=== PATIENT | male | born 1985 | race Two or more races ===

== ENCOUNTER 2019-11-20 17:39 | Emergency (ER) | payer OTHER ==
[2019-11-20 17:47] VITALS: BP 139/93
[2019-11-20] MEDS ORDERED: ONDANSETRON ODT 4 MG TAB (6 TAB/ER DISP) PO PRN (18:31)
[2019-11-20] MEDS ORDERED: IBUPROFEN 600 MG TABLET PO ONE (18:31)
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
== END 2019-11-20 18:52 | disposition home or self-care (01) ==
LOC: ER 17:39
DX: S13.9XXA Sprain of joints and ligaments of unspecified parts of neck, initial encounter (principal); V49.60XA Unspecified car occupant injured in collision with unspecified motor vehicles in traffic accident, initial encounter
CPT/HCPCS: 99283